=== PATIENT | male | born 2000 | race African-American/Black ===

== ENCOUNTER 2019-09-21 05:56 | Emergency (ER) | payer MEDICAID, OTHER ==
[~2019-09-21] VITALS: Ht 172.7 cm; Wt 86.2 kg
[2019-09-21 06:57] LABS: Basophils # (auto) 0 uL; Eosinophils # (auto) 0 uL; Eosinophils % (auto) 0.1 % (0.0-7.0); Neutrophils # (auto) 8.6 uL; Neutrophils % (auto) 90.3 % (37.0-80.0); Nucleated Red Blood Cells % 0.1 %; White Blood Cell 9.6 10^3/uL (4.4-10.8)
[2019-09-21 07:00] LABS: Basophils % (auto) 0.3 % (0.0-2.0); Hematocrit 50.4 % (41.0-53.0); Hemoglobin 17.4 g/dL (13.5-17.5); Lymphocytes # (auto) 0.3 uL; Lymphocytes % (auto) 2.6 % (10.0-50.0); Mean Corpuscular Hemoglobin 33.2 pg (28.0-32.0); Mean Corpuscular Hgb Conc. 34.6 g/dL (32.0-36.0); Mean Corpuscular Volume 95.9 fL (80.0-100.0); Monocytes # (auto) 0.6 uL; Monocytes % (auto) 6.7 % (0.0-12.0); Platelet Count (auto) 247 10^3/uL (140-450); Red Blood Cells 5.26 10^6/uL (4.5-5.90); Red Cell Distribution Width 14.4 % (11.8-14.3)
[2019-09-21 07:11] LABS: INR 1.02 (0.9-1.15)
[2019-09-21 07:16] LABS: Urine Bacteria NONE SEEN /hpf (None Seen); Urine Blood Negative /uL (Negative); Urine Mucus FEW (None Seen); Urine WBC <1 /hpf (0 - 3)
[2019-09-21 07:17] LABS: Albumin 3.7 g/dL (3.4-5.0); BUN/Creatinine Ratio 11.9; Calcium 8.5 mg/dL (8.5-10.1); Magnesium 1.9 mg/dL (1.6-2.6); Potassium 4.2 mmol/L (3.5-5.1)
[2019-09-21 07:20] LABS: Bilirubin, Total 1.8 mg/dL (0.2-1.0)
[2019-09-21 09:04] VITALS: BP 130/59
== END 2019-09-21 09:12 | disposition home or self-care (01) ==
LOC: ER 05:56 → EDBD 05:56 → ER 09:08
DX: K29.70 Gastritis, unspecified, without bleeding (principal)
CPT/HCPCS: 36415; 80053; 81001; 82150; 83690; 83735; 85025; 85610; 85730